=== PATIENT | female | born 1930 | race Caucasian/White ===

== ENCOUNTER 2017-05-08 18:08 | Emergency (ER) | payer MEDICARE ==
[~2017-05-08] VITALS: Ht 162.6 cm; Wt 83.0 kg
[~2017-05-08 18:08] MED LIST: ALLO100T PO; ASP81TEC PO; BPR150TCR PO; CIPR500T95 PO; FURO20TA PO; MOT200T1 PO; OMEP20TA86 PO; PRO10 PO; QVAR80 INH; SALM50DI IH; TIOT18CA IH; ZES20T PO; [UNRECOGNIZED DRUG - CODE] PO
[2017-05-08 18:17] VITALS: BP 189/105; PULSE 79; RESP 22; O2SAT 94
--- NOTE | 2017-05-08 18:54 | DRSVH ---
PROCEDURE: CT BRAIN WITHOUT CONTRAST ([id number]) INDICATIONS: fall, head injury TECHNIQUE: Noncontrast 4.5 mm thick angled axial sections acquired from the foramen magnum to the vertex, with c oronal reformats. COMPARISON: [facility], CT, CT BRAIN WO CON, 12/02/2015, 22:56. FINDINGS: Image quality: Excellent. CSF spaces: Basal cisterns are patent. No extra-axial fluid collections. The ventricles are symmet lacey in size and shape. Brain: No intracranial bleeds or masses. There is cerebral volume loss for age, with resultant vent ricular and sulcal prominence. There are periventricular and deep white matter chronic small vessel ischemic changes. There is intracranial internal carotid artery atherosclerosis. An old lacunar inf arction is present again seen at the medial lentiform nuclei of the left. Skull and face: Calvarium and visualized facial bones appear intact, without suspicious lesions. Th ere is an area of scalp bruising at the right frontal region without underlying skull fracture or bra in parenchymal injury Sinuses: Visualized sinuses and mastoids are clear. IMPRESSION: Mild to moderate microvascular atherosclerotic change in the deep white matter of each h emisphere, with an old lacunar infarction at the medial border of the lentiform nuclei on the left, a nd also noted is a cephalohematoma involving the right frontal region, but without underlying skull o r brain parenchymal injury. Dictated by: Alexander Cadena M.D. on 05/08/2017 at 18:50 Approved by: Alexander Cadena M.D. on 05/08/2017 at 18:52
--- NOTE | 2017-05-08 19:09 | ED.REPORT ---
HPI-Trauma Minor / Fall Date of Service May 08, 2017 ED Provider: Sarthak Cordova DO A 87 year old female with a history of COPD, CVA, hypertension, chronic hip pain , GERD, depression and sleep apnea presents to the ED due to a fall. The pt was walking to dinner at [place] where she resides and tripped on her walker. She did not experience chest pain or shortness of breath prior to the fall. The pt hit her right elbow and the right side of her forehead on the ground but did not lose consciousness. The pt denies fever, nausea, vomiting, diarrhea, or neck pain. Nursing Notes Stated Complaint: GROUND LEVEL FALL,HEAD INJURY,HIGH BLOOD PRESSURE Chief Complaint: General Complaint Nursing Notes Reviewed: Yes Allergies: Coded Allergies: Penicillins (Verified Allergy, Severe, RASH,HIVES, 07/21/11) Scheduled APAP/Diphen-Expunged Drug, Do Not Renew! (APAP/Diphen-Expunged Drug, Do Not Renew!) 1 Each Tablet 1 EACH PO HS Allopurinol-Expunged Drug, Do Not Renew! (Allopurinol-Expunged Drug, Do Not Renew!) 100 Mg Tablet 100 MG PO BID Aspirin-Expunged Drug, Do Not Renew! (Aspirin EC-Expunged Drug, Do Not Renew!) 81 Mg Tablet 81 MG PO DAILY Beclomethasone-Expunged Drug, Do Not Renew! (Ihsz-03-Farwhwmf Drug, Do Not Renew !) 80 Mcg Puff 1 PUFF INH BID Bupropion-Expunged Drug, Do Not Renew! (Bupropion SR-Expunged Drug, Do Not Renew !) 150 Mg Tablet 150 MG PO BID Ciprofloxacin (Cipro) 500 Mg Tablet 500 MG PO BID FLUoxetine-Expunged Drug, Do Not Renew! (FLUoxetine-Expunged Drug, Do Not Renew! ) 10 Mg Capsule 10 MG PO DAILY Furosemide-Expunged Drug, Do Not Renew! (Lasix-Expunged Drug, Do Not Renew!) 20 Mg Tablet 20 MG PO DAILY Ibuprofen-Expunged Drug, Do Not Renew! (Motrin-Expunged Drug, Do Not Renew!) 200 Mg Tab 200 MG PO DAILY Lisinopril-Expunged Drug, Do Not Renew! (Lisinopril-Expunged Drug, Do Not Renew! ) 20 Mg Tablet 10 MG PO DAILY Omeprazole-Expunged Drug, Do Not Renew! (Omeprazole-Expunged Drug, Do Not Renew! ) 20 Mg Tablet.dr 20 MG PO DAILY Salmeterol Natalie-Expunged Drug, Do Not Renew! (Serevent Diskus-Expunged Drug, Do Not Renew!) 50 Mcg/Disk W/Dev Disk.w.dev 1 PUFF IH AM Tiotropium Br-Expunged Drug, Do Not Renew! (Spiriva-Expunged Drug, Do Not Renew! ) 18 Mcg/Puff Pack 1 PUFF IH HS General Time Seen by MD: 18:34 Chief Complaint Fall Hx Obtained From: Patient Arrived By: Walk-in Onset Occurred: 1 - 4 hours ago Recent Healthcare: No recent doctor visit, No recent hospitalization Similar Sx Previous: No Risk Factors Head CT Imaging Inclusion Criteria: >/= 16 yo age GCS of 14 OR 15 Non Pentrating Injury Presentation w/in 24 hrs. Patient Presents WITHOUT: Loss of Conciousness, PostTraumatic Amnesia Consider Non Contrast CT for: >/= 60 yo Age WITHOUT LOCNo Fall Down Steps >/= 5, No Vomiting RF Statements: Risk factors reviewed Past Medical History Past Medical History Notes: PCP: Dr. Sharon Rdz. Patient is scheduled for physical therapy for right leg. Past Medical History COPD. Hypertension - well-comtrolled with Lisinopril. Lower extremity edema. Admission for urosepsis with E. Coli 2010. Carpel tunnel Stroke in August, Past Surgical History Right shoulder Carppel tunnel release Smoking History Former Smoker Social History Alcohol Use: Denies alcohol use Drug Use: Denies drug use Other Social History: Lives in assisted Ambulatory Status Walker Review of Systems Constitutional: Denies: Fever Respiratory: Denies: Non-productive cough, Shortness of breath Musculoskeletal: Denies: Neck pain Skin: Denies Rash Neurologic: Reports: Headache, Denies: Change LOC Complete sys rev & neg: except as marked. Cardiovascular: Denies: Chest pain GI: Denies: Abdominal pain, Diarrhea, Nausea, Vomiting Physical Exam Initial Vital Signs Vital Signs (First) Date Time Temp Pulse Resp B/P Pulse Ox O2 Delivery O2 Flow Rate FiO2 05/08/17 18:17 36.8 79 22 189/105 94 Room Air Initial VS: Reviewed General/Constitutional: Awake, Alert Neck: Atraumatic, Supple, Full range of motion Head / Eyes: Normocephalic, PERRL, EOMI frontal hematoma ENT: Atraumatic, Airway patent, Mucous membranes moist Respiratory / Chest: Atraumatic, Breath sounds NL, Breath sounds = bilat, No respiratory distress Cardiovascular: Heart rate NL, Regular rhythm, Heart sounds NL Abdomen: Atraumatic, Soft, Non-tender Back: Atraumatic, Full range of motion Upper Extremity / MS: Atraumatic, Full range of motion Lower Extremity / Pelvis / MS: Atraumatic, Full range of motion, No edema Skin: Color NL, No rash, Warm, Dry Neurologic: Oriented X3, Speech NL, No motor deficits, No sensory deficits, CN II - XII intact Psychiatric: Affect NL, Mood NL Interpretation & Diagnostics Lab Results Interpretation Result Diagram: 05/08/17199905/08/171999 Test 05/08/17 20:00 05/08/17 20:06 White Blood Count 10.8th/mm3 (3.8-10.1) Red Blood Count 4.78mil/mm3 (3.90-5.20) Hemoglobin 14.7g/dL (12.0-15.6) Hematocrit 45.6% (35.0-46.0) Mean Corpuscular Volume 95.4fL (81-100) Mean Corpuscular Hemoglobin 30.8pg (27.0-35.0) Mean Corpuscular Hemoglobin Concent 32.2% (32.0-37.0) Red Cell Distribution Width 13.0% (12.3-15.4) Platelet Count 283bil/L (150-400) Neutrophils (%) (Auto) 68.8% (40-74) Lymphocytes (%) (Auto) 20.9% (14-46) Monocytes (%) (Auto) 7.0% (4-12) Eosinophils (%) (Auto) 2.6% (0-5) Basophils (%) (Auto) 0.5% (0-3) Sodium Level 139mEq/L (134-144) Potassium Level 4.2mEq/L (3.5-5.2) Chloride Level 101mEq/L (97-108) Carbon Dioxide Level 25mmol/L (18-29) Blood Urea Nitrogen 18mg/dL (8-27) Creatinine 0.98mg/dL (0.57-1.00) Estimat Glomerular Filtration Rate 77mL/min (>59) Glucose Level 111mg/dL (60-99) Calcium Level 9.9mg/dL (8.5-10.1) Total Bilirubin 0.8mg/dL (0.0-1.2) Aspartate Amino Transf (AST/SGOT) 23U/L (0-50) Alanine Aminotransferase (ALT/SGPT) 14U/L (0-32) Alkaline Phosphatase 80U/L (25-165) Total Protein 7.0g/dL (6.4-8.4) Albumin 4.0g/dL (3.4-5.0) Hold [place] Top Tube Received (Received) Urine Color Yellow (YELLOW) Urine Appearance Clear (CLEAR,HAZY) Urine pH 5.5 (5.0-8.0) Urine Specific [place] 1.005 (1.003-1.035) Urine Protein Negativemg/dL (NEG,TRACE) Urine Glucose (UA) Negativemg/dL (NEGATIVE) Urine Ketones Negativemg/dL (NEGATIVE) Urine Occult Blood Negative (NEGATIVE) Urine Nitrite Positive (NEGATIVE) Urine Bilirubin Negative (NEGATIVE) Urine Urobilinogen Normalmg/dL (NORMAL) Urine Leukocyte Esterase Trace (NEGATIVE) Urine RBC 0-2/hpf (0-2) Urine WBC 11-50/hpf (0-5) Urine Epithelial Cells Few/hpf (NONE-MOD) Urine Crystals None seen (NONE SEEN) Urine Bacteria Many/hpf (NONE-FEW) Urine Hyaline Casts None/lpf (NONE) Urine Granular Casts None seen (NONE SEEN) Urine Waxy Casts None seen (NONE SEEN) Urine Red Blood Cell Casts None seen (NONE SEEN) Urine White Blood Cell Casts None seen (NONE SEEN) Urine Mucus None seen (None Seen) Urine Trichomonas None seen (NONE SEEN) Urine Yeast None (NONE SEEN) Urinalysis Comment None Pulse Oximetry Interpretation Pulse Oximetry Interpretation: 94% on room air Pulse Oximetry: Pulse Ox normal CT Head Interpretation IMPRESSION: Mild to moderate microvascular atherosclerotic change in the deep white matter of each hemisphere, with an old lacunar infarction at the medial border of the lentiform nuclei on the left, and also noted is a cephalohematoma involving the right frontal region, but without underlying skull or brain parenchymal injury. Dictated by: Alexander Cadena M.D. on 05/08/2017 at 18:50 Approved by: Alexander Cadena M.D. on 05/08/2017 at 18:52 Interpretation / Wet Read by: Interpret - Radiologist Re-Eval/Medical Decision Med Decision/Clinical Course Mechanical fall. UTI identified. We will treat her with Bactrim. CT brain reassuring. Laboratory work otherwise reassuring. There was no syncope or presyncope. Further investigation felt to be not indicated. Re-Evaluation/Progress : Time of Eval: 20:25 Patient Status: Condition improved Re-Evaluation/Progress Note: Pt rechecked, who is resting comfortably. She is informed of her lab and radiology results. discussed. The pt understands and agrees with the plan. All questions are addressed at this time. Counseled Regarding: Diagnosis, Lab results, Need for follow-up, When/why to return to ED Discharge & Departure Impression: Primary Impression: Fall from ground level Additional Impressions: Head contusion Encounter type: initial encounter Contusion of head detail: unspecified part of head Qualified Code: S00.93XA - Contusion of unspecified part of head , initial encounter Skin tear of right elbow without complication Encounter type: initial encounter Qualified Code: S51.011A - Laceration without foreign body of right elbow, initial encounter UTI (urinary tract infection) Urinary tract infection type: site unspecified Hematuria presence: without hematuria Qualified Code: N39.0 - Urinary tract infection, site not specified Disposition: Home Discharge Condition All VS Reviewed: Yes Condition: Stable Patient Instructions: Contusion in Adults (ED), Fall Prevention (ED), Urinary Tract Infection in Women (ED) Additional Instructions: Take Bactrim twice daily for five days. Apply bacitracin to the wound twice daily. Call your primary care physician in the morning to arrange a follow up appointment on Friday. Discuss the results from your urine culture during this appointment. Return to the emergency department if you develop any new or worsening symptoms. Referrals: Sharon Rdz MD (PCP) Katlynibmiguel Attestation Portions of this note were transcribed by Kathy Wang. I, Dr. Cordova personally performed the history, physical exam and medical decision-making; I reviewed and confirmed the accuracy of the information in the transcribed note. Signed by: Dank Gar, 05/08/17 and 2114. copies to: Sharon Rdz MD, Todd P DO May 08, 2017 19:08 KATHY WANG May 08, 2017 19:41
[2017-05-08 20:08] LABS: BASOPHILS % (AUTO) 0.5 % (0-3); EOSINOPHILS % (AUTO) 2.6 % (0-5); Mean Corpuscular Hemoglobin 30.8 pg (27.0-35.0); Mean Corpuscular Volume 95.4 fL (81-100); NEUTROPHILS % (AUTO) 68.8 % (40-74); Platelet Count 283 bil/L (150-400)
[2017-05-08 20:16] LABS: APPEARANCE,URINE CLEAR (CLEAR,HAZY); COLOR,URINE YELLOW (YELLOW); OCCULT BLOOD,URINE NEGATIVE (NEGATIVE); PH,URINE 5.5 (5.0-8.0); UROBILINOGEN,URINE NORMAL (NORMAL)
[2017-05-08] MEDS ORDERED: Trimethoprim-Sulfa 160 mg-800 mg Tablet PO ONE (20:25)
[2017-05-08 21:12] VITALS: BP 179/68; PULSE 70; RESP 17; O2SAT 97
== END 2017-05-08 21:02 | disposition home or self-care (01) ==
LOC: SED 18:08
DX: S00.83XA Contusion of other part of head, initial encounter (principal); S51.011A Laceration without foreign body of right elbow, initial encounter; W01.198A Fall on same level from slipping, tripping and stumbling with subsequent striking against other object, initial encounter; Y92.129 Unspecified place in nursing home as the place of occurrence of the external cause; Y93.01 Activity, walking, marching and hiking; Y99.8 Other external cause status; N39.0 Urinary tract infection, site not specified; B96.20 Unspecified Escherichia coli [E. coli] as the cause of diseases classified elsewhere; J44.9 Chronic obstructive pulmonary disease, unspecified; I10 Essential (primary) hypertension; M25.559 Pain in unspecified hip; G89.29 Other chronic pain; K21.9 Gastro-esophageal reflux disease without esophagitis; F32.9 Major depressive disorder, single episode, unspecified; G47.33 Obstructive sleep apnea (adult) (pediatric); Z86.73 Personal history of transient ischemic attack (TIA), and cerebral infarction without residual deficits; Z87.891 Personal history of nicotine dependence; Z79.82 Long term (current) use of aspirin; Z88.0 Allergy status to penicillin